=== PATIENT | male | born 1980 | race Caucasian/White ===

== ENCOUNTER 2016-10-24 09:43 | Emergency (ER) | payer MEDICAID ==
--- NOTE | 2016-10-24 09:57 | Emergency Department Record ---
History of Present Illness - General Chief complaint: Cold Stated complaint: SHORTNESS OF BREATH/CONGESTION Time Seen by Provider: 10/24/16 09:52 Source: Patient, Family Mode of Arrival: Ambulatory Limitations: No limitations - History of Present Illness Initial comments: 36 yo male presents with cough for 3 weeks. It has been on and off. The last 2 days it worsened. He is a smoker. He has associated sore throat and drainage. He did not get a flu shot. No history of asthma. He has had pneumonia in the past. No NVD. PCP is the [facility] MD complaint: Sore throat, Other (cough and congestion) Onset/Timin -: Week(s) Location: Throat Severity: Moderate Consistency: Constant Improves with: None Worsens with: None Context- Ear: Recent illness Associated Symptoms: Cough, Rhinorrhea, Sore throat - Related Data Previous Rx's Medication Instructions Recorded Azithromycin [Zithromax] 250 mg PO DAILY #6 tab 10/24/16 Allergies Allergy/AdvReac Type Severity Reaction Status Date / Time No Known Drug Allergies Allergy Verified 10/24/16 09:46 Travel Screening - Travel/Exposure Within Last 30 Days Have you traveled within the last 30 days?: No - Travel/Exposure Within Last Year Have you traveled outside the [place] in the last year?: No - Additonal Travel Details Have you been exposed to anyone with a communicable illness?: No - Travel Symptoms Symptom Screening: None Review of Systems Constitutional: Reports: Chills, Fever. Denies: Malaise Eyes: Denies: Eye discharge, Eye pain, Photophobia, Vision change ENT: Reports: Congestion. Denies: Epistaxis Respiratory: Reports: Cough. Denies: Hemoptysis, Stridor, Wheezes Cardiovascular: Denies: Chest pain, Palpitations, Syncope Endocrine: Denies: Fatigue Gastrointestinal: Denies: Abdominal pain, Diarrhea, Nausea, Vomiting Genitourinary: Denies: Frequency, Hematuria Musculoskeletal: Denies: Arthralgia, Back pain, Myalgia Skin: Denies: Bruising, Change in color, Rash Neurological: Denies: Confusion, Headache Psychiatric: Denies: Anxiety Hematological/Lymphatic: Denies: Blood Clots, Easy bleeding, Easy bruising, Swollen glands Past Medical History - SOCIAL HISTORY Smoking Status: Current every day smoker Alcohol Use: None Drug Use: None - RESPIRATORY Hx Respiratory Disorders: No - CARDIOVASCULAR Hx Cardio Disorders: No - NEURO Hx Neuro Disorders: No - GI Hx GI Disorders: Yes Hx Reflux: Yes - Hx Genitourinary Disorders: No - ENDOCRINE Hx Endocrine Disorders: No - MUSCULOSKELETAL Hx Musculoskeletal Disorders: No - PSYCH Hx Psych Problems: No - HEMATOLOGY/ONCOLOGY Hx Hematology/Oncology Disorders: No Family Medical History Any Significant Family History?: Yes Hx Diabetes: Grandparents Physical Exam - General General Appearance: Alert, Oriented x3, Cooperative, No acute distress Limitations: No limitations - Head Head exam: Normal inspection - Eye Eye exam: Normal appearance, PERRL. negative: Conjunctival injection, Periorbital swelling - ENT ENT exam: Normal exam, Mucous membranes moist, Normal external ear exam. negative: Normal orophraynx Ear exam: Normal external inspection. negative: External canal tenderness Nasal Exam: Discharge (clear) Mouth exam: Normal external inspection, Tongue normal Teeth exam: Normal inspection. negative: Dental caries Throat exam: Tonsillar erythema. negative: Tonsillomegaly, Tonsillar exudate, R peritonsillar mass, L peritonsillar mass - Neck Neck exam: Normal inspection, Full ROM. negative: Tenderness - Respiratory Respiratory exam: Normal lung sounds bilaterally. negative: Respiratory distress - Cardiovascular Cardiovascular Exam: Regular rate, Normal rhythm, Normal heart sounds - GI/Abdominal GI/Abdominal exam: Soft - Rectal Rectal exam: Deferred - exam: Deferred - Extremities Extremities exam: Normal inspection, Full ROM, Normal capillary refill. negative: Tenderness - Back Back exam: Reports: Normal inspection, Full ROM. Denies: Muscle spasm, Rash noted, Tenderness - Neurological Neurological exam: Alert, Normal gait, Oriented X3 - Psychiatric Psychiatric exam: Normal affect, Normal mood - Skin Skin exam: Dry, Intact, Normal color, Warm Course Vital Signs 10/24/16 09:48 Temperature 97.6 F Pulse Rate 96 H Respiratory 24 Rate Blood Pressure 138/79 Pulse Ox 96 - Reevaluation(s) Reevaluation #1: The vitals were reviewed No acute changes He is well appearing with occasional cough, runny nose and sore throat FLU and CXR ordered 10/24/16 09:57 Reevaluation #2: The influenza are negative The patient has had productive prolonged cough so RX will be provided for Zithromax CXR was negative for acute process 10/24/16 10:27 Disposition Disposition: Discharge Clinical Impression: Bronchitis Disposition: Home, Self-Care Condition: (1) Good Instructions: Acute Bronchitis (ED) Additional Instructions: Followup with your doctor this week Zithromax daily for 5 days. Prescriptions: Azithromycin [Zithromax] 250 mg PO DAILY #6 tab Forms: Patient Portal Access Time of Disposition: 10:29
[2016-10-24 10:14] LABS: INFLUENZA A NEGATIVE (NEGATIVE); INFLUENZA B NEGATIVE (NEGATIVE)
--- NOTE | 2016-10-28 14:46 | RADIOLOGY REPORT ---
EXAM: CHEST, TWO VIEWS HISTORY: PATIENT HAS ACUTE PRODUCTIVE COUGH TIMES THREE WEEKS. SHORTNESS OF BREATH. TECHNIQUE: Two views of the chest were provided along with the comparison study dated 02/26/10. FINDINGS: The cardiomediastinal silhouette is within normal limits for size and contour. The dany appear unremarkable. There is no radiographic evidence of a focal infiltrate or pleural effusion. Vascular crowding at the lung bases are identified. IMPRESSION: STABLE RADIOGRAPHIC APPEARANCE OF THE CHEST WITH RESPECT TO THE PRIOR EXAMINATION. JOB NUMBER: [id number] MTDD
== END 2016-10-24 10:34 | disposition home or self-care (01) ==
LOC: ER 09:43
DX: J20.9 Acute bronchitis, unspecified (principal); J02.9 Acute pharyngitis, unspecified; Z87.891 Personal history of nicotine dependence
CPT/HCPCS: 71020; 87400; 99283

== ENCOUNTER 2016-12-30 11:01 | Emergency (ER) | payer MEDICAID ==
--- NOTE | 2016-12-30 11:22 | Emergency Department Record ---
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 His neuropathy started one year ago. Last CT and MRI of brain in jun 2016. Onset/Timin -: Week(s) Exposure: Medication Symptoms: Itching, Rash, Difficulty breathing Severity: Mild Treatment Prior to Arrival: None Previous Allergy History: None - Related Data Home Medications Medication Instructions Recorded Confirmed Last Taken Gabapentin 300 mg PO TID #90 12/10/16 12/30/16 Unknown Allergies Allergy/AdvReac Type Severity Reaction Status Date / Time No Known Drug Allergies Allergy Unverified 12/10/16 13:52 Travel Screening - Travel/Exposure Within Last 30 Days Have you traveled within the last 30 days?: No Review of Systems Reviewed: No additional complaints except as noted below Constitutional: Reports: As per HPI. Denies: Chills, Fever, Malaise, Night sweats, Weakness, Weight change Eyes: Reports: As per HPI. Denies: Eye discharge, Eye pain, Photophobia, Vision change ENT: Reports: As per HPI. Denies: Congestion, Dental pain, Ear pain, Epistaxis , Hearing loss, Throat pain Respiratory: Reports: As per HPI. Denies: Cough, Dyspnea, Hemoptysis, Stridor, Wheezes Cardiovascular: Reports: As per HPI. Denies: Arrhythmia, Chest pain, Dyspnea on exertion, Edema, Murmurs, Orthopnea, Palpitations, Paroxysmal nocturnal dyspnea, Rheumatic Fever, Syncope Endocrine: Reports: As per HPI. Denies: Fatigue, Heat or cold intolerance, Polydipsia, Polyuria Gastrointestinal: Reports: As per HPI. Denies: Abdominal pain, Constipation, Diarrhea, Hematemesis, Hematochezia, Melena, Nausea, Vomiting Genitourinary: Reports: As per HPI. Denies: Dysuria, Frequency, Hematuria, Incontinence, Retention, Testicular pain, Testicular mass, Urgency Musculoskeletal: Reports: As per HPI. Denies: Arthralgia, Back pain, Gout, Joint swelling, Myalgia, Neck pain Skin: Reports: As per HPI. Denies: Bruising, Change in color, Change in hair/ nails, Lesions, Pruritus, Rash Neurological: Reports: As per HPI, Abnormal gait (walks with a cane), Numbness ( right side of body and has right sided neuropathy). Denies: Confusion, Headache , Paresthesias, Seizure, Tingling, Tremors, Vertigo, Weakness Psychiatric: Reports: As per HPI. Denies: Anxiety, Auditory hallucinations, Depression, Homicidal thoughts, Suicidal thoughts, Visual hallucinations Hematological/Lymphatic: Reports: As per HPI. Denies: Anemia, Blood Clots, Easy bleeding, Easy bruising, Swollen glands Past Medical History - SOCIAL HISTORY Smoking Status: Current every day smoker Alcohol Use: None Drug Use: None - RESPIRATORY Hx Respiratory Disorders: No - CARDIOVASCULAR Hx Cardio Disorders: No - NEURO Hx Neuro Disorders: Yes Comment:: neuropathy - GI Hx GI Disorders: Yes Hx Reflux: Yes - Hx Genitourinary Disorders: No - ENDOCRINE Hx Endocrine Disorders: No - MUSCULOSKELETAL Hx Musculoskeletal Disorders: Yes - PSYCH Hx Psych Problems: No - HEMATOLOGY/ONCOLOGY Hx Hematology/Oncology Disorders: No Family Medical History Any Significant Family History?: Yes Hx Diabetes: Grandparents Physical Exam - General General Appearance: Alert, Oriented x3, Cooperative, No acute distress - Head Head exam: Normal inspection - Eye Eye exam: Normal appearance, PERRL Pupils: Normal accommodation - ENT ENT exam: Normal exam, Mucous membranes moist, Normal external ear exam, Normal orophraynx, TM's normal bilaterally Ear exam: Normal external inspection. negative: External canal tenderness Nasal Exam: Normal inspection. negative: Discharge, Sinus tenderness Mouth exam: Normal external inspection, Tongue normal Teeth exam: Normal inspection. negative: Dental caries Throat exam: Normal inspection. negative: Tonsillar erythema, Tonsillar exudate - Neck Neck exam: Normal inspection, Full ROM. negative: Tenderness - Respiratory Respiratory exam: Normal lung sounds bilaterally. negative: Respiratory distress - Cardiovascular Cardiovascular Exam: Regular rate, Normal rhythm, Normal heart sounds - GI/Abdominal GI/Abdominal exam: Soft, Normal bowel sounds. negative: Tenderness - Rectal Rectal exam: Deferred - exam: Deferred - Extremities Extremities exam: Normal inspection, Full ROM, Normal capillary refill, Other ( weakness right leg and numbness right face and right arm and right leg, No faciaal droop). negative: Tenderness - Back Back exam: Reports: Normal inspection, Full ROM. Denies: Muscle spasm, Rash noted, Tenderness - Neurological Neurological exam: Alert, Normal gait, Oriented X3, Reflexes normal - Psychiatric Psychiatric exam: Normal affect, Normal mood - Skin Skin exam: Dry, Intact, Normal color, Warm Course Vital Signs 12/30/16 11:14 Temperature 97.9 F Pulse Rate 101 H Respiratory 22 Rate Blood Pressure 154/80 Pulse Ox 95 Medical Decision Making - Data Complexity MDM Data: Labs Ordered and/or Reviewed, X-Ray Ordered and/or Reviewed (CT head neg, same as previous) - Lab Data Result diagrams: 12/30/16 11:40 12/30/16 11:40 Disposition Clinical Impression: Neuropathy, Right facial numbness Disposition: Home, Self-Care Condition: (1) Good Instructions: Paresthesia (ED), Peripheral Neuropathy (ED) Additional Instructions: follow up with family follow up with the neurologist Forms: Patient Portal Access Time of Disposition: 12:25
[2016-12-30 11:48] LABS: BASO % 0.4 % (0-6); EOS % 3.7 % (0-6); GRAN % 56.5 % (47-80); HEMOGLOBIN 15.6 gm/dl (14.0-18.0); LYMPH % 28.6 % (16-45); MEAN CELL VOLUME 89.5 fl (81-97); MEAN CORPUSCULAR HEMOGLOBIN 30.4 pg (27-33); MEAN CORPUSCULAR HGB CONC 33.9 g/dl (32-36); MEAN PLATELET VOLUME 9.5 fl (7.4-10.4); MONO % 10.8 % (0-9); PLATELET COUNT 313 K/uL (130-400); RED BLOOD COUNT 5.14 M/uL (4.40-5.70); RED CELL DISTRIBUTION WIDTH 13.6 % (11.5-14.5); WHITE BLOOD COUNT W/O DIFF 8.5 K/uL (4.2-12.2)
[2016-12-30 12:01] LABS: ANION GAP 8.8 (7-16); BLOOD UREA NITROGEN 20 mg/dL (9-20); CARBON DIOXIDE 30.2 mmol/L (22-30); CREATININE 1.1 mg/dL (0.66-1.25); EST GLOMERULAR FILTRATION RATE > 60 ml/min; GLUCOSE,RANDOM 108 mg/dL (70-110)
[2016-12-30] MEDS: POTASSIUM CHLORIDE 20 MEQ TABLET PO ONE (12:32)
== END 2016-12-30 12:45 | disposition home or self-care (01) ==
LOC: ER 11:01
DX: G62.9 Polyneuropathy, unspecified (principal); R20.0 Anesthesia of skin; R06.00 Dyspnea, unspecified; R21 Rash and other nonspecific skin eruption; R26.2 Difficulty in walking, not elsewhere classified
CPT/HCPCS: 70450; 80048; 85025; 85730; 99283; 99284

== ENCOUNTER 2017-01-21 16:37 | Emergency (ER) | payer MEDICAID ==
--- NOTE | 2017-01-21 17:21 | Emergency Department Record ---
History of Present Illness - General Chief Complaint: Back Pain/Injury Stated Complaint: PAIN IN BACK AND ALL OVER Time Seen by Provider: 01/21/17 17:21 Source: Patient Mode of Arrival: Ambulatory Limitations: No limitations - History of Present Illness Initial Comments: The patient is here for multiple complaints. He states he is having worsening of his chronic pain that he has been experiencing for over a year. He had his Gabapentin stopped because of side effects and he has been unable to get into his Neurologist. He also states when he sees his PCP she just says to see his Neurologist. Now additionally he has been having sharp stabbing L sided CP for 3 days. It is worse with movement and twisting. He has had chronic SOB also but no sweating or nausea. MD Complaint: Other Onset/Timin -: Year(s) Similar Symptoms Previously: Yes Severity scale (1-10): 10 Quality: Sharp Consistency: Intermittent Improves With: None Worsens With: None Context: Other Treatments Prior to Arrival: NSAIDS - Related Data Home Medications Medication Instructions Recorded Confirmed Last Taken Gabapentin 300 mg PO TID #90 12/10/16 01/21/17 01/21/17 Cholecalciferol (Vitamin D3) 5,000 unit PO DAILY 01/21/17 01/21/17 01/21/17 [Vitamin D3] Previous Rx's Medication Instructions Recorded Naproxen [Naprosyn] 500 mg PO BID #14 tablet. 01/21/17 Potassium Chloride 20 meq PO DAILY #7 tab.[email or web address].prt 01/21/17 Allergies Allergy/AdvReac Type Severity Reaction Status Date / Time No Known Drug Allergies Allergy Verified 01/21/17 17:06 Travel Screening - Travel/Exposure Within Last 30 Days Have you traveled within the last 30 days?: No - Travel/Exposure Within Last Year Have you traveled outside the [place] in the last year?: No - Additonal Travel Details Have you been exposed to anyone with a communicable illness?: No - Travel Symptoms Symptom Screening: None Review of Systems Constitutional: Denies: Chills, Fever Eyes: Denies: Eye discharge ENT: Denies: Congestion Respiratory: Denies: Cough, Dyspnea Past Medical History - SOCIAL HISTORY Smoking Status: Current every day smoker Alcohol Use: None Drug Use: None - RESPIRATORY Hx Respiratory Disorders: No - CARDIOVASCULAR Hx Cardio Disorders: No - NEURO Hx Neuro Disorders: Yes Comment:: neuropathy - GI Hx GI Disorders: Yes Hx Reflux: Yes - Hx Genitourinary Disorders: No - ENDOCRINE Hx Endocrine Disorders: No - MUSCULOSKELETAL Hx Musculoskeletal Disorders: Yes - PSYCH Hx Psych Problems: No - HEMATOLOGY/ONCOLOGY Hx Hematology/Oncology Disorders: No Family Medical History Any Significant Family History?: Yes Hx Diabetes: Grandparents Physical Exam - General General Appearance: Alert, Oriented x3, Cooperative, No acute distress - Head Head exam: Atraumatic, Normocephalic, Normal inspection - Eye Eye exam: Normal appearance, PERRL - Neck Neck exam: Normal inspection, Full ROM. negative: Tenderness - Respiratory Respiratory exam: Normal lung sounds bilaterally, Chest wall tenderness (The L sided CP is 100% reproducible to palpation of the L anterior chest wall.). negative: Respiratory distress - Cardiovascular Cardiovascular Exam: Regular rate, Normal rhythm, Normal heart sounds - GI/Abdominal GI/Abdominal exam: Soft, Normal bowel sounds. negative: Tenderness - Extremities Extremities exam: Normal inspection, Full ROM, Normal capillary refill, Pedal edema (1+ chronically bilaterally.). negative: Tenderness Course Vital Signs 01/21/17 17:09 Temperature 98.9 F Pulse Rate 103 H Respiratory 20 Rate Blood Pressure 146/84 Pulse Ox 97 - Reevaluation(s) Reevaluation #1: The patient is doing better at this time. His pain is improved and is still very reproducible. I did explain to him that I do believe his pain is muscular in origin and I will prescribe Naprosyn for the pain. He also will receive a short course of Potassium also. 01/21/17 18:45 Reevaluation #2: I did discuss the case with the patient's PCP Jessica LAO) and she will see him next week. 01/21/17 19:09 Medical Decision Making - Data Complexity MDM Data: Labs Ordered and/or Reviewed, X-Ray Ordered and/or Reviewed, EKG Ordered and/or Reviewed - Lab Data Result diagrams: 01/21/17 17:45 01/21/17 17:45 - EKG Data -: EKG Interpreted by Me EKG: No Acute Changes, Unchanged From Previous - Radiology Data Radiology results: Report reviewed (CXR: Neg.) Disposition Disposition: Discharge Clinical Impression: Chest wall pain Disposition: Home, Self-Care Condition: (1) Good Instructions: Chest Wall Pain (ED) Additional Instructions: The patient is to take the Naprosyn for pain and use the Potassium for 7 days. He is to see his PCP early next week to go over his lab work and low TSH. He is to return to the ER for any increased symptoms, increased Chest pain, trouble breathing or any fever. Prescriptions: Naproxen [Naprosyn] 500 mg PO BID #14 tablet. Potassium Chloride 20 meq PO DAILY #7 tab.er.prt Forms: Patient Portal Access Time of Disposition: 18:49
[2017-01-21 18:01] LABS: BASO % 0.3 % (0-6); EOS % 3.2 % (0-6); GRAN % 54.7 % (47-80); HEMATOCRIT 49.5 % (42.0-52.0); HEMOGLOBIN 16.7 gm/dl (14.0-18.0); LYMPH % 30.2 % (16-45); MEAN CELL VOLUME 89.7 fl (81-97); MEAN CORPUSCULAR HEMOGLOBIN 30.3 pg (27-33); MEAN CORPUSCULAR HGB CONC 33.7 g/dl (32-36); MEAN PLATELET VOLUME 9.8 fl (7.4-10.4); MONO % 11.6 % (0-9); PLATELET COUNT 339 K/uL (130-400); RED BLOOD COUNT 5.52 M/uL (4.40-5.70); RED CELL DISTRIBUTION WIDTH 13.3 % (11.5-14.5)
[2017-01-21 18:11] LABS: ANION GAP 11.5 (7-16); BLOOD UREA NITROGEN 24 mg/dL (9-20); CARBON DIOXIDE 28.5 mmol/L (22-30); CREATINE PHOSPHOKINASE 131 U/L (55-170); EST GLOMERULAR FILTRATION RATE > 60 ml/min; GLUCOSE,RANDOM 102 mg/dL (70-110)
[2017-01-21] MEDS ORDERED: POTASSIUM CHLORIDE 20 MEQ TABLET PO ONE (18:15)
[2017-01-21] MEDS ORDERED: KETOROLAC 30 MG/ML VIAL IVP ONE (18:17)
[2017-01-21 18:23] LABS: CKMB 0.3 ug/L (0-6)
[2017-01-21 18:24] LABS: TROPONIN I < 0.012 ng/mL (0.00-0.034)
== END 2017-01-21 18:57 | disposition home or self-care (01) ==
LOC: ER 16:37
DX: R07.89 Other chest pain (principal); R06.02 Shortness of breath; G62.9 Polyneuropathy, unspecified
CPT/HCPCS: 99284 ×2; 96374; 82550; 85025; 82553; 84484; 80048; 84443; 71020; 93005; 93010; J1885

== ENCOUNTER 2017-05-29 20:45 | Emergency (ER) | payer MEDICAID ==
[2017-05-29] MEDS ORDERED: DIPHENHYDRAMINE HCL IV 50 MG/ML VIAL IVP ONE (21:26)
[2017-05-29] MEDS ORDERED: METOCLOPRAMIDE HCL 10 MG/2 ML VIAL IVP ONE (21:26)
[2017-05-29] MEDS ORDERED: MORPHINE SULFATE 5 MG/ML PFS IVP ONE (21:30)
[2017-05-29] MEDS ORDERED: 0.9 % SODIUM CHLORIDE 1000ML 1,000 ML IV SCH (21:30)
--- NOTE | 2017-05-29 21:31 | Emergency Department Record ---
History of Present Illness - General Stated Complaint: DALTON AND VOMITING Time Seen by Provider: 05/29/17 21:26 Source: Patient Mode of Arrival: Wheelchair Limitations: No limitations - History of Present Illness Initial Comments: 36 yo male presents to ED for evaluation of a persistent headache, nausea, and vomiting following an LP that was performed by his neurologist at [facility] 3 days ago. Patient reports that his procedure was performed in the Clinical center, was performed to further evaluate for the patient's neuropathy symptoms. Patient denies fevers, chills, or recent illness. Patient called the on-call provider yesterday afternoon with no return call. MD Complaint: Headache Onset/Timin -: Days(s) Onset Description: Gradual Location: Diffuse Severity: Severe Quality: Throbbing Consistency: Constant Improves With: Nothing Worsens With: Sitting/standing Context: Recent spinal/epidural procedure Associated Symptoms: Nausea, Vomiting - Related Data Allergies Allergy/AdvReac Type Severity Reaction Status Date / Time No Known Drug Allergies Allergy Unverified 04/06/17 11:20 Review of Systems Constitutional: Denies: Chills, Fever, Malaise, Night sweats Eyes: Denies: Eye discharge, Eye pain ENT: Denies: Ear pain, Epistaxis Respiratory: Denies: Cough, Dyspnea Cardiovascular: Denies: Chest pain, Dyspnea on exertion Endocrine: Denies: Fatigue, Heat or cold intolerance Gastrointestinal: Reports: Nausea, Vomiting. Denies: Abdominal pain Genitourinary: Denies: Incontinence, Retention Musculoskeletal: Denies: Arthralgia, Back pain, Gout, Joint swelling Skin: Denies: Bruising, Change in color Neurological: Reports: Headache. Denies: Abnormal gait, Confusion, Seizure Psychiatric: Denies: Anxiety Hematological/Lymphatic: Denies: Anemia, Blood Clots Past Medical History - SOCIAL HISTORY Smoking Status: Current every day smoker Drug Use: None - RESPIRATORY Hx Respiratory Disorders: No - CARDIOVASCULAR Hx Cardio Disorders: No - NEURO Hx Neuro Disorders: Yes Comment:: neuropathy - GI Hx GI Disorders: Yes Hx Reflux: Yes - Hx Genitourinary Disorders: No - ENDOCRINE Hx Endocrine Disorders: No - MUSCULOSKELETAL Hx Musculoskeletal Disorders: Yes - PSYCH Hx Psych Problems: No - HEMATOLOGY/ONCOLOGY Hx Hematology/Oncology Disorders: No Family Medical History Hx Diabetes: Grandparents Physical Exam - General General Appearance: Alert, Oriented x3, Cooperative, Moderate distress Limitations: No limitations - Head Head exam: Atraumatic, Normocephalic, Normal inspection Head exam detail: negative: Abrasion, Contusion, Prince's sign, General tenderness, Hematoma, Laceration - Eye Eye exam: Normal appearance. negative: Conjunctival injection, Periorbital swelling, Periorbital tenderness, Scleral icterus - ENT Ear exam: negative: Auricular hematoma, Auricular trauma Nasal Exam: negative: Active bleeding, Discharge, Dried blood, Foreign body Mouth exam: negative: Drooling, Laceration, Muffled voice, Tongue elevation - Neck Neck exam: Normal inspection. negative: Meningismus, Tenderness - Respiratory Respiratory exam: Normal lung sounds bilaterally. negative: Rales, Respiratory distress, Rhonchi, Stridor - Cardiovascular Cardiovascular Exam: Regular rate, Normal rhythm, Normal heart sounds - GI/Abdominal GI/Abdominal exam: Soft. negative: Rebound, Rigid, Tenderness - Rectal Rectal exam: Deferred - exam: Deferred - Extremities Extremities exam: Normal inspection. negative: Calf tenderness, Pedal edema, Tenderness - Back Back exam: Denies: CVA tenderness (R), CVA tenderness (L) - Neurological Neurological exam: Alert, Oriented X3. negative: Motor sensory deficit - Psychiatric Psychiatric exam: Normal affect, Normal mood - Skin Skin exam: Normal color. negative: Abrasion Type of lesion: negative: abrasion Course - Reevaluation(s) Reevaluation #1: 05/29/17 23:06 Labs reviewed, WBC 12.8, labs are otherwise grossly unremarkable for an acute process. CT Head: No acute intracranial process, 5 mm colloid cyst foramen of sparks. Patient reassessed and reports improvement in his headache symptoms. Will gradually attempt to sit the patient up and continue to monitor. Reevaluation #2: 05/30/17 00:03 Patient reassessed, reports that his headache symptoms continue to improve. Will continue to observe as medications continue to infuse. Reevaluation #3: 05/30/17 01:12 Patient reports that he is feeling well at this time, no indication for transfer for blood patch at this time. Patient appears stable for discharge at this time with instructions to return for any return of his headache symptoms. Medical Decision Making - Lab Data Result diagrams: 05/29/17 21:55 05/29/17 21:55 Disposition Disposition: Discharge Clinical Impression: Post lumbar puncture headache Disposition: Home, Self-Care Condition: (2) Stable Instructions: Acute Headache (ED) Additional Instructions: Return to ED if your symptoms worsen or if you have any concerns. Follow-up with your family doctor in 1-3 days as directed. Time of Disposition: 01:16 Quality - Quality Measures Quality Measures: N/A - Blood Pressure Screening Does Patient Have Any of the Following: No Blood Pressure Classification: Pre-Hypertensive BP Reading Systolic Measurement: 147 Diastolic Measurement: 88 Screening for High Blood Pressure: < Pre-Hypertensive BP, F/U Documented > [ [id number]] Pre-Hypertensive Follow-up Interventions: Referral to alternative/primary care provider.
[2017-05-29 22:08] LABS: BASO % 0.3 % (0-6); GRAN % 58.1 % (47-80); HEMATOCRIT 44.2 % (42.0-52.0); HEMOGLOBIN 14.8 gm/dl (14.0-18.0); LYMPH % 29.8 % (16-45); MEAN CELL VOLUME 91.1 fl (81-97); MEAN CORPUSCULAR HEMOGLOBIN 30.5 pg (27-33); MEAN CORPUSCULAR HGB CONC 33.5 g/dl (32-36); MEAN PLATELET VOLUME 9.5 fl (7.4-10.4); MONO % 8.8 % (0-9); PLATELET COUNT 322 K/uL (130-400); RED BLOOD COUNT 4.85 M/uL (4.40-5.70); RED CELL DISTRIBUTION WIDTH 14.2 % (11.5-14.5); WHITE BLOOD COUNT W/O DIFF 12.8 K/uL (4.2-12.2)
[2017-05-29 22:19] LABS: INR 0.91; PROTHROMBIN TIME (PATIENT) 9.8 SECONDS (9.5-12.1)
[2017-05-29 22:26] LABS: ALB/GLOB RATIO 1.4 (1.1-1.8); ALBUMIN 3.8 g/dL (4.0-5.0); ALKALINE PHOSPHATASE 61 U/L (40-129); ALT/SGPT 50 U/L (<41); AST/SGOT 20 U/L (10.0-50.0); BLOOD UREA NITROGEN 17 mg/dL (6-20); CREATININE 0.9 mg/dL (0.7-1.2); EST GLOMERULAR FILTRATION RATE > 60 mL/min; GLUCOSE,RANDOM 101 mg/dL (74-109); TOTAL PROTEIN 6.6 g/dL (6.6-8.7)
--- NOTE | 2017-05-31 09:38 | CT SCAN REPORT ---
EXAM: CT OF THE BRAIN WITHOUT CONTRAST HISTORY: HEADACHE. TECHNIQUE: Sequential axial images were obtained from the foramen magnum to the vertex without contrast administration. FINDINGS: The brain volume is normal. There is no large territorial infarct, hemorrhage, mass effect, or midline shift. No extraaxial fluid collection. There is a hyperdense colloid cyst in the foramen of Paige. This measures 5 mm. The orbits, paranasal sinuses, and mastoid air cells are normal. IMPRESSION: 1. NO ACUTE INTRACRANIAL ABNORMALITY IS APPRECIATED. 2. 5 MM COLLOID CYST IN THE FORAMEN OF PAIGE. JOB NUMBER: [id number] MTDD
== END 2017-05-30 01:31 | disposition home or self-care (01) ==
LOC: ER 20:45
DX: G97.1 Other reaction to spinal and lumbar puncture (principal); R11.2 Nausea with vomiting, unspecified; Y84.4 Aspiration of fluid as the cause of abnormal reaction of the patient, or of later complication, without mention of misadventure at the time of the procedure
CPT/HCPCS: 99284 ×2; 96374; 96375; 85025; 85610; 80053; 70450; J2270; J1200; J2765

== ENCOUNTER 2018-04-23 18:17 | Emergency (ER) | payer MEDICAID ==
[2018-04-23] MEDS ORDERED: Diph,Pert(Acell),Tet Vac 0.5 ML SYR IM ONE (18:40)
[2018-04-23] MEDS ORDERED: CLINDAMYCIN 150 MG CAP PO ONE (18:43)
--- NOTE | 2018-04-23 18:43 | Emergency Department Record ---
History of Present Illness - General Chief complaint: Extremity Problem Stated complaint: L LEG/FOOT SWOLLEN/RASH R Time Seen by Provider: 04/23/18 18:30 Source: Patient Mode of Arrival: Ambulatory - History of Present Illness Initial comments: Patient and report that his left toes had sores on the top of them which they first oticed yesterday. Toay there is redness around the sore areas. He has neuropathy so they always burn and tingle. He thinks it started with a sore he found on his left lateral thigh whichhis swueezed and pus came out about 5 days ago. He denies having MRSA to his knowledge. He is not UTD on his tetanus. MD Complaint: Extremity pain Onset/Timin -: Days(s) Location: Left, Foot History of Same: Yes Radiation: None Severity scale (1-10): 6 Consistency: Intermittent Improves with: Nothing Worsens with: Nothing Associated Symptoms: Denies other symptoms - Related Data Previous Rx's Medication Instructions Recorded Clindamycin HCl [Cleocin HCl] 300 mg PO Q6HR #39 capsule 04/23/18 Allergies Allergy/AdvReac Type Severity Reaction Status Date / Time gabapentin Allergy Intermediate RASH, Verified 04/23/18 18:21 FACIAL NUMBNESS Travel Screening - Travel/Exposure Within Last 30 Days Have you traveled within the last 30 days?: No - Travel/Exposure Within Last Year Have you traveled outside the [place] in the last year?: No - Additonal Travel Details Have you been exposed to anyone with a communicable illness?: No - Travel Symptoms Symptom Screening: None Review of Systems Reviewed: No additional complaints except as noted below Constitutional: Reports: As per HPI. Denies: Chills, Fever, Malaise, Night sweats, Weakness, Weight change Eyes: Reports: As per HPI. Denies: Eye discharge, Eye pain, Photophobia, Vision change ENT: Reports: As per HPI. Denies: Congestion, Dental pain, Ear pain, Epistaxis , Hearing loss, Throat pain Respiratory: Reports: As per HPI. Denies: Cough, Dyspnea, Hemoptysis, Stridor, Wheezes Cardiovascular: Reports: As per HPI. Denies: Arrhythmia, Chest pain, Dyspnea on exertion, Edema, Murmurs, Orthopnea, Palpitations, Paroxysmal nocturnal dyspnea, Rheumatic Fever, Syncope Endocrine: Reports: As per HPI. Denies: Fatigue, Heat or cold intolerance, Polydipsia, Polyuria Gastrointestinal: Reports: As per HPI. Denies: Abdominal pain, Constipation, Diarrhea, Hematemesis, Hematochezia, Melena, Nausea, Vomiting Genitourinary: Reports: As per HPI. Denies: Dysuria, Frequency, Hematuria, Incontinence, Retention, Testicular pain, Testicular mass, Urgency Musculoskeletal: Reports: As per HPI. Denies: Arthralgia, Back pain, Gout, Joint swelling, Myalgia, Neck pain Skin: Reports: As per HPI. Denies: Bruising, Change in color, Change in hair/ nails, Lesions, Pruritus, Rash Neurological: Reports: As per HPI. Denies: Abnormal gait, Confusion, Headache, Numbness, Paresthesias, Seizure, Tingling, Tremors, Vertigo, Weakness Psychiatric: Reports: As per HPI. Denies: Anxiety, Auditory hallucinations, Depression, Homicidal thoughts, Suicidal thoughts, Visual hallucinations Hematological/Lymphatic: Reports: As per HPI. Denies: Anemia, Blood Clots, Easy bleeding, Easy bruising, Swollen glands Past Medical History - SOCIAL HISTORY Smoking Status: Former smoker Alcohol Use: None Drug Use: None - RESPIRATORY Hx Respiratory Disorders: No - CARDIOVASCULAR Hx Cardio Disorders: No - NEURO Hx Neuro Disorders: Yes Comment:: neuropathy - GI Hx GI Disorders: Yes Hx Reflux: Yes - Hx Genitourinary Disorders: No - ENDOCRINE Hx Endocrine Disorders: No - MUSCULOSKELETAL Hx Musculoskeletal Disorders: Yes - PSYCH Hx Psych Problems: No - HEMATOLOGY/ONCOLOGY Hx Hematology/Oncology Disorders: No Family Medical History Any Significant Family History?: Yes Hx Diabetes: Grandparents Physical Exam - General General Appearance: Alert, Oriented x3, Cooperative, No acute distress - Head Head exam: Normal inspection - Eye Eye exam: Normal appearance, PERRL Pupils: Normal accommodation - ENT ENT exam: Normal exam, Mucous membranes moist, Normal external ear exam, Normal orophraynx, TM's normal bilaterally Ear exam: Normal external inspection. negative: External canal tenderness Nasal Exam: Normal inspection. negative: Discharge, Sinus tenderness Mouth exam: Normal external inspection, Tongue normal Teeth exam: Normal inspection. negative: Dental caries Throat exam: Normal inspection. negative: Tonsillar erythema, Tonsillar exudate - Neck Neck exam: Normal inspection, Full ROM. negative: Tenderness - Respiratory Respiratory exam: Normal lung sounds bilaterally. negative: Respiratory distress - Cardiovascular Cardiovascular Exam: Regular rate, Normal rhythm, Normal heart sounds - GI/Abdominal GI/Abdominal exam: Soft, Normal bowel sounds. negative: Tenderness - Rectal Rectal exam: Deferred - exam: Deferred - Extremities Extremities exam: Normal inspection, Full ROM, Normal capillary refill, Other ( dorsal aspect of toes of left foot with sores with surrounding erythema; noncircumferential, nothing involved between toes.). negative: Calf tenderness , Pedal edema, Tenderness - Back Back exam: Reports: Normal inspection, Full ROM. Denies: Muscle spasm, Rash noted, Tenderness - Neurological Neurological exam: Alert, Normal gait, Oriented X3, Reflexes normal - Psychiatric Psychiatric exam: Normal affect, Normal mood - Skin Skin exam: Dry, Intact, Normal color, Warm Course Vital Signs 04/23/18 18:23 Temperature 98.1 F Pulse Rate 77 Respiratory 20 Rate Blood Pressure 151/93 Pulse Ox 98 Medical Decision Making - Data Complexity MDM Data: X-Ray Ordered and/or Reviewed (foot xray (of toes): No acute abnormality per ED physician.) Disposition Disposition: Discharge Clinical Impression: Cellulitis of second toe, left Disposition: Home, Self-Care Condition: (1) Good Instructions: Cellulitis (ED) Additional Instructions: Keep foot covered for protection. Post op shoe. Decreased ambulation. Elevate foot above heart continuously. Follow up with PCP Leyla Bloom Wednesday for recheck of cellulitis without fail. Clindamycin 300 mg every 6 hours for 10 days. Prescriptions: Clindamycin HCl [Cleocin HCl] 300 mg PO Q6HR #39 capsule Forms: Patient Portal Access Quality - Quality Measures Quality Measures: N/A - Blood Pressure Screening Does Patient Have Any of the Following: No Blood Pressure Classification: Hypertensive Reading Systolic Measurement: 151 Diastolic Measurement: 93 Screening for High Blood Pressure: Patient Exclusion, Hx of HTN [G9744]
--- NOTE | 2018-04-23 19:00 | Emergency Department Record ---
History of Present Illness - General Chief complaint: Extremity Problem Stated complaint: L LEG/FOOT SWOLLEN/RASH R Time Seen by Provider: 04/23/18 18:30 Mode of Arrival: Ambulatory - History of Present Illness Onset/Timin -: Days(s) Location: Left, Foot History of Same: Yes Radiation: None Severity scale (1-10): 6 Consistency: Intermittent Improves with: Nothing Worsens with: Nothing Associated Symptoms: Denies other symptoms - Related Data Allergies Allergy/AdvReac Type Severity Reaction Status Date / Time gabapentin Allergy Intermediate RASH, Verified 04/23/18 18:21 FACIAL NUMBNESS Travel Screening - Travel/Exposure Within Last 30 Days Have you traveled within the last 30 days?: No - Travel/Exposure Within Last Year Have you traveled outside the [place] in the last year?: No - Additonal Travel Details Have you been exposed to anyone with a communicable illness?: No - Travel Symptoms Symptom Screening: None Past Medical History - SOCIAL HISTORY Smoking Status: Former smoker Alcohol Use: None Drug Use: None - RESPIRATORY Hx Respiratory Disorders: No - CARDIOVASCULAR Hx Cardio Disorders: No - NEURO Hx Neuro Disorders: Yes Comment:: neuropathy - GI Hx GI Disorders: Yes Hx Reflux: Yes - Hx Genitourinary Disorders: No - ENDOCRINE Hx Endocrine Disorders: No - MUSCULOSKELETAL Hx Musculoskeletal Disorders: Yes - PSYCH Hx Psych Problems: No - HEMATOLOGY/ONCOLOGY Hx Hematology/Oncology Disorders: No Family Medical History Any Significant Family History?: Yes Hx Diabetes: Grandparents Course Vital Signs 04/23/18 18:23 Temperature 98.1 F Pulse Rate 77 Respiratory 20 Rate Blood Pressure 151/93 Pulse Ox 98 Disposition Quality - Blood Pressure Screening Does Patient Have Any of the Following: No Blood Pressure Classification: Hypertensive Reading Systolic Measurement: 151 Diastolic Measurement: 93
--- NOTE | 2018-04-25 08:48 | RADIOLOGY REPORT ---
EXAM: LEFT FOOT HISTORY: PAIN. TECHNIQUE: Three views of the left foot were obtained. FINDINGS: There are degenerative changes at the first MTP joint. No fractures are identified. There is no evidence of foreign body or periosteal reaction. IMPRESSION: NO EVIDENCE OF FRACTURE. JOB NUMBER: [id number] [facility]
== END 2018-04-23 19:47 | disposition home or self-care (01) ==
LOC: ER 18:17
DX: L03.032 Cellulitis of left toe (principal); Z87.891 Personal history of nicotine dependence
CPT/HCPCS: 90715; 96372; 99283

== ENCOUNTER 2018-04-24 22:23 | Emergency (ER) | payer MEDICAID ==
[2018-04-24 22:42] LABS: URINE APPEARANCE CLEAR; URINE BILIRUBIN NEGATIVE (NEGATIVE); URINE BLOOD NEGATIVE (NEGATIVE); URINE COLOR YELLOW; URINE GLUCOSE (UA) NEGATIVE (NEGATIVE); URINE KETONE NEGATIVE (NEGATIVE); URINE LEUKOCYTE ESTERASE NEGATIVE (NEGATIVE); URINE NITRITE NEGATIVE (NEGATIVE); URINE PROTEIN NEGATIVE (NEGATIVE); URINE UROBILINOGEN 0.2 E.U./dL (0.20 - 1.00)
--- NOTE | 2018-04-24 22:50 | Emergency Department Record ---
History of Present Illness - General Chief complaint: Male Urogenital Problem Stated complaint: PAIN DURING URINATION, Time Seen by Provider: 04/24/18 22:24 Source: Patient Mode of Arrival: Ambulatory Limitations: No limitations - History of Present Illness Initial comments: 37 yo male presents to ED for evaluation of dysuria and frequent urination symptoms that began last this afternoon. Patient denies fevers, chills. flank pain, or hematuria [id number]. Patient reports that he was in the ED yesterday, diagnosed with cellulitis of the left foot, and started on an antibiotic. Patient denies previous history of DM, and denies scrotal/testicular pain symptoms. MD Complaint: Testicle swelling Onset/Timin -: Hour(s) Location: Penis Radiation: None Severity scale (1-10): 7 Quality: Burning Consistency: Intermittent Improves with: None Worsens with: None Reports: Denies other symptoms - Related Data Sexually active: Yes Previous Rx's Medication Instructions Recorded Clindamycin HCl [Cleocin HCl] 300 mg PO Q6HR #39 capsule 04/23/18 Phenazopyridine HCl [Pyridium] 200 mg PO TID #5 tab 04/24/18 Allergies Allergy/AdvReac Type Severity Reaction Status Date / Time gabapentin Allergy Intermediate RASH, Verified 04/23/18 18:21 FACIAL NUMBNESS Travel Screening - Travel/Exposure Within Last 30 Days Have you traveled within the last 30 days?: No - Travel/Exposure Within Last Year Have you traveled outside the [place] in the last year?: No - Additonal Travel Details Have you been exposed to anyone with a communicable illness?: No - Travel Symptoms Symptom Screening: None Review of Systems Constitutional: Denies: Chills, Fever, Malaise, Night sweats Eyes: Denies: Eye discharge, Eye pain ENT: Denies: Congestion, Ear pain, Epistaxis Respiratory: Denies: Cough, Dyspnea Cardiovascular: Denies: Chest pain, Dyspnea on exertion Endocrine: Denies: Fatigue, Heat or cold intolerance Gastrointestinal: Denies: Abdominal pain, Nausea, Vomiting Genitourinary: Reports: Dysuria, Frequency. Denies: Incontinence, Retention Musculoskeletal: Denies: Arthralgia, Back pain, Gout, Joint swelling Skin: Denies: Bruising, Change in color Neurological: Denies: Abnormal gait, Confusion, Headache, Seizure Psychiatric: Denies: Anxiety Hematological/Lymphatic: Denies: Anemia, Blood Clots Past Medical History - SOCIAL HISTORY Smoking Status: Former smoker Alcohol Use: None Drug Use: None - RESPIRATORY Hx Respiratory Disorders: No - CARDIOVASCULAR Hx Cardio Disorders: No - NEURO Hx Neuro Disorders: Yes Comment:: neuropathy - GI Hx GI Disorders: Yes Hx Reflux: Yes - Hx Genitourinary Disorders: No - ENDOCRINE Hx Endocrine Disorders: No - MUSCULOSKELETAL Hx Musculoskeletal Disorders: Yes - PSYCH Hx Psych Problems: No - HEMATOLOGY/ONCOLOGY Hx Hematology/Oncology Disorders: No Family Medical History Any Significant Family History?: No Hx Diabetes: Grandparents Physical Exam - General General Appearance: Alert, Oriented x3, Cooperative, No acute distress Limitations: No limitations - Head Head exam: Atraumatic, Normocephalic, Normal inspection Head exam detail: negative: Abrasion, Contusion, Prince's sign, General tenderness, Hematoma, Laceration - Eye Eye exam: Normal appearance. negative: Conjunctival injection, Periorbital swelling, Periorbital tenderness, Scleral icterus - ENT Ear exam: negative: Auricular hematoma, Auricular trauma Nasal Exam: negative: Active bleeding, Discharge, Dried blood, Foreign body Mouth exam: negative: Drooling, Laceration, Muffled voice, Tongue elevation - Neck Neck exam: Normal inspection. negative: Meningismus, Tenderness - Respiratory Respiratory exam: Normal lung sounds bilaterally. negative: Rales, Respiratory distress, Rhonchi, Stridor - Cardiovascular Cardiovascular Exam: Regular rate, Normal rhythm, Normal heart sounds - GI/Abdominal GI/Abdominal exam: Soft, Tenderness (Mild TTP over the suprapubic region on examination, no rebound or guarding present on examination.). negative: Rebound , Rigid - Rectal Rectal exam: Deferred - exam: Deferred - Extremities Extremities exam: Other (Abrasions are present over the dorsum of the left toes) . negative: Calf tenderness, Pedal edema, Tenderness - Back Back exam: Denies: CVA tenderness (R), CVA tenderness (L) - Neurological Neurological exam: Alert, Normal gait, Oriented X3 - Psychiatric Psychiatric exam: Normal affect, Normal mood - Skin Skin exam: Normal color. negative: Abrasion Type of lesion: negative: abrasion Course Vital Signs 04/24/18 22:29 Temperature 98.5 F Pulse Rate 74 Respiratory 28 H Rate Blood Pressure 139/87 Pulse Ox 98 - Reevaluation(s) Reevaluation #1: 04/24/18 22:46 UA reviewed and appears negative for infection. Reevaluation #2: 04/24/18 23:42 Labs reviewed and are grossly unremarkable for an acute process. CT results are pending. Reevaluation #3: 04/24/18 23:51 CT Abdomen and Pelvis: Mild hepatic steatosis Contracted GB with stones vs. calcifications within the GB fossa (Patient reports previous cholecystectomy) Patient was updated on all results, appears stable for discharge at this time. Will discharge home on Pyridium as directed with instructions for follow-up in 3 -5 days as directed. Medical Decision Making - Lab Data Result diagrams: 04/24/18 23:00 04/24/18 23:00 Lab Results 04/24/18 Range/Units Unknown Urine Color Yellow Urine Appearance Clear Urine pH 6.0 (5.0-8.0) Ur Specific [place] 1.010 (1.002-1.030) Urine Protein Negative (NEGATIVE) Urine Glucose (UA) Negative (NEGATIVE) Urine Ketones Negative (NEGATIVE) Urine Blood Negative (NEGATIVE) Urine Nitrite Negative (NEGATIVE) Urine Bilirubin Negative (NEGATIVE) Urine Urobilinogen 0.2 (0.20 - 1.00) E.U./dL Ur Leukocyte Esterase Negative (NEGATIVE) Disposition Disposition: Discharge Clinical Impression: Dysuria Disposition: Home, Self-Care Condition: (2) Stable Instructions: Dysuria (ED) Additional Instructions: Return to ED if your symptoms worsen or if you have any concerns. Pyridium as directed. Follow-up with your family doctor in 3-5 days as directed. Prescriptions: Phenazopyridine HCl [Pyridium] 200 mg PO TID #5 tab Forms: Patient Portal Access Time of Disposition: 23:59 Quality - Quality Measures Quality Measures: N/A - Blood Pressure Screening Does Patient Have Any of the Following: No Blood Pressure Classification: Pre-Hypertensive BP Reading Systolic Measurement: 139 Diastolic Measurement: 87 Screening for High Blood Pressure: < Pre-Hypertensive BP, F/U Documented > [ G8950] Pre-Hypertensive Follow-up Interventions: Referral to alternative/primary care provider.
[2018-04-24 23:10] LABS: BASO % 0.4 % (0-6); GRAN % 59.5 % (47-80); HEMATOCRIT 43.1 % (42.0-52.0); HEMOGLOBIN 14.7 gm/dl (14.0-18.0); LYMPH % 28.9 % (16-45); MEAN CELL VOLUME 90.7 fl (81-97); MEAN CORPUSCULAR HEMOGLOBIN 30.9 pg (27-33); MEAN CORPUSCULAR HGB CONC 34.1 g/dl (32-36); MEAN PLATELET VOLUME 9.9 fl (7.4-10.4); MONO % 8.2 % (0-9); PLATELET COUNT 296 K/uL (130-400); RED BLOOD COUNT 4.75 M/uL (4.40-5.70); RED CELL DISTRIBUTION WIDTH 14.3 % (11.5-14.5); WHITE BLOOD COUNT W/O DIFF 10.1 K/uL (4.2-12.2)
[2018-04-24 23:19] LABS: BLOOD UREA NITROGEN 14 mg/dL (6-20); CREATININE 1.1 mg/dL (0.7-1.2); EST GLOMERULAR FILTRATION RATE > 60 mL/min; TOTAL PROTEIN 6.7 g/dL (6.6-8.7)
[2018-04-24 23:21] LABS: GLUCOSE,RANDOM 95 mg/dL (74-109)
[2018-04-24 23:24] LABS: ALB/GLOB RATIO 1.8 (1.1-1.8); ALBUMIN 4.3 g/dL (4.0-5.0); ALKALINE PHOSPHATASE 70 U/L (40-129); ALT/SGPT 37 U/L (<41); AST/SGOT 21 U/L (10.0-50.0); LIPASE 41 U/L (13-60)
[2018-04-24] MEDS ORDERED: PHENAZOPYRIDINE HCL 95 MG TABLET PO ONE (23:59)
--- NOTE | 2018-04-26 07:48 | CT SCAN REPORT ---
EXAM: CT OF THE ABDOMEN AND PELVIS WITHOUT CONTRAST HISTORY: ABDOMINAL PAIN. TECHNIQUE: Sequential axial images were obtained from the diaphragms through the ischiorectal fossa without intravenous or oral contrast administration. FINDINGS: The visualized lung bases are normal. The heart and pericardium appear normal. The gallbladder is contracted. There are multiple stones present. The pancreas and spleen appear normal. The adrenal glands and kidneys appear normal. No CT findings suggestive of obstructive uropathy. The small and large bowel appears normal. The appendix is visualized and appears normal. The urinary bladder appears normal. The osseous structures are normal. IMPRESSION: 1. CONTRACTED GALLBLADDER WITH CHOLELITHIASIS. NO DUCTAL DILATATION. 2. MILD FATTY INFILTRATION OF THE LIVER. [facility]BER: [id number] [facility]
== END 2018-04-25 00:09 | disposition home or self-care (01) ==
LOC: ER 22:23
DX: R30.0 Dysuria (principal); N50.89 Other specified disorders of the male genital organs; R10.9 Unspecified abdominal pain; L03.032 Cellulitis of left toe; Z87.891 Personal history of nicotine dependence
CPT/HCPCS: 74176; 80053; 81003; 83690; 85025; 99283; 99284

== ENCOUNTER 2018-05-18 20:42 | Emergency (ER) | payer MEDICAID ==
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
[2018-05-18] MEDS: ONDANSETRON 4 MG ODT TABLET SL ONE (21:15)
[2018-05-18] MEDS: METHYLPREDNISOLONE PF 125MG/VIAL IM ONE (21:16)
[2018-05-18] MEDS: DIPHENHYDRAMINE HCL 50 MG/ML VIAL IM ONE (21:16)
== END 2018-05-18 22:24 | disposition home or self-care (01) ==
LOC: ER 20:42
DX: T63.443A Toxic effect of venom of bees, assault, initial encounter (principal); R11.0 Nausea; L29.9 Pruritus, unspecified; Z87.891 Personal history of nicotine dependence
CPT/HCPCS: 96372; 99283; J1200; J2930

== ENCOUNTER 2018-11-03 09:59 | Day surgery (SDC) | payer MEDICARE, MEDICAID ==
[2018-11-03] MEDS ORDERED: PROPOFOL 10 MG/ML VIAL IV ONE (10:00)
[2018-11-03] MEDS ORDERED: LIDOCAINE 2% MDV (20MG/ML) 20ML VIAL IV ONE (10:00)
--- NOTE | 2018-11-04 10:00 | Operative Note ---
DATE OF SURGERY: 11/03/2018 OPERATION: ESOPHAGOGASTRODUODENOSCOPY with biopsy. PREOPERATIVE DIAGNOSIS: Chronic reflux. POSTOPERATIVE DIAGNOSIS: Mild GE junction erythema. PROCEDURE: After informed consent was obtained from the patient, he was placed in the supine position in the endoscopy department. He was sedated by the department of anesthesia. A well-lubricated [id number] gastroscope was placed in the posterior oropharynx under direct visualization and passed to the proximal esophagus. The endoscope was advanced through the proximal, mid, and distal esophagus. The GE junction demonstrated some mild erythema but no ulcers, erosions, strictures, varices, or mass lesions were seen. No obvious Dash's was noted. The gastric body, antrum, pylorus, duodenal bulb, and sweep were unremarkable. The endoscope was then inverted in the gastric body. Proximal views of the fundus were unrevealing. The endoscope was then straightened and retracted from the patient with no new findings noted. RECOMMENDATIONS: I would recommend the patient continue his current medical program. However, I did instruct him to take his omeprazole prior to his evening meal rather than prior to bedtime given the need for meal-induced proton pump stimulation. As always, thank you for allowing me to participate in the healthcare of your patients. CC: ANJELICA Michele
== END 2018-11-03 11:35 | disposition home or self-care (01) ==
LOC: HOP 09:59
PROVIDERS: ATTEND Internal Medicine Gastroenterology
DX: K21.9 Gastro-esophageal reflux disease without esophagitis (principal); K31.9 Disease of stomach and duodenum, unspecified; I10 Essential (primary) hypertension; G62.9 Polyneuropathy, unspecified

== ENCOUNTER 2019-05-29 14:01 | Emergency (ER) | payer MEDICARE, MEDICAID ==
--- NOTE | 2019-05-29 14:34 | Emergency Department Record ---
History of Present Illness - General Stated Complaint: PAIN/NUMBNESS RT SIDE Time Seen by Provider: 05/29/19 14:07 Source: Patient, Family Mode of Arrival: Ambulatory Limitations: No limitations - History of Present Illness Initial Comments: 38 yo male presents with some worsening pain and weakness in his RUE. He reports he has had a neuropathy involving the RUE, RLE, and LLE for about 4 years. He does see a neurologist and a pain specialist. His pain specialist has had him on Trokendi (topiramate) for about 2 years. He ran out about 2 weeks ago. His symptoms worsened a few days after that. He states the Tokendi is the one thing that has helped over time. He has chronic weakness and pain. It is not unusual for him to drop objects or have pain with he raises his arm upward. His doctor has given him samples over the last two years but the pharmacy rep has not resupplied him. No other new or different symptoms. No speech changes. -: Days(s) Location: Other History of same: Yes Place: Home Severity: Moderate Quality: Burning, Constant, Tingling Improves With: Medication Worsens With: Other (Being off the medication) On Anticoagulants: No Context: Gradual onset Associated Symptoms: Denies other symptoms Treatments Prior to Arrival: None - Renuka Coma Scale Eye Response: (4) Open spontaneously Motor Response: (6) Obeys commands Verbal Response: (5) Oriented [place] Total: 15 - Related Data Home Medications: Previous Rx's Medication Instructions Recorded Topiramate 100Mg Tablet 100 mg PO BID #28 tablet 05/29/19 [Topiramate] Allergies/Adverse Reactions: Allergies Allergy/AdvReac Type Severity Reaction Status Date / Time gabapentin Allergy Intermediate RASH, Unverified 04/19/19 08:54 FACIAL NUMBNESS Review of Systems Constitutional: Denies: Chills, Fever, Malaise, Weakness Eyes: Denies: Eye discharge ENT: Denies: Congestion, Throat pain Respiratory: Denies: Cough Cardiovascular: Denies: Chest pain, Palpitations, Syncope Endocrine: Denies: Fatigue Gastrointestinal: Denies: Abdominal pain, Diarrhea, Nausea, Vomiting Genitourinary: Denies: Dysuria, Frequency, Hematuria Musculoskeletal: Denies: Arthralgia, Back pain, Joint swelling, Myalgia Skin: Denies: Bruising, Change in color, Rash Neurological: Reports: Numbness, Tingling, Weakness Psychiatric: Reports: Anxiety Hematological/Lymphatic: Denies: Easy bleeding, Easy bruising Past Medical History - SOCIAL HISTORY Smoking Status: Light tobacco smoker (<10/day) - RESPIRATORY Hx Respiratory Disorders: No - CARDIOVASCULAR Hx Cardio Disorders: Yes Hx Hypertension: Yes (on meds) - NEURO Hx Neuro Disorders: Yes Hx Neuropathy: Yes (feet, legs, right arm and hand) Comment:: unknown cause of neuropathy - GI Hx GI Disorders: Yes Hx Reflux: Yes - Hx Genitourinary Disorders: Yes Comment:: urgency, completness of urination - ENDOCRINE Hx Endocrine Disorders: Yes Hx Diabetes: No Hx Thyroid Disease: Yes (biopsy but okay so far, no meds) - MUSCULOSKELETAL Hx Musculoskeletal Disorders: Yes - PSYCH Hx Psych Problems: No Hx Anxiety: No Hx Depression: No - HEMATOLOGY/ONCOLOGY Hx Hematology/Oncology Disorders: No Family Medical History Family Hx Comment (NOT TO BE USED IN PLACE OF ITEMS BELOW): diabetics and htn runs in family but unsure of details. Physical Exam - General General Appearance: Alert, Oriented x3, Cooperative, No acute distress Limitations: No limitations - Head Head exam: Atraumatic, Normal inspection - Eye Eye exam: Normal appearance, PERRL. negative: Conjunctival injection, Scleral icterus - ENT ENT exam: Normal exam, Mucous membranes moist Ear exam: Normal external inspection Nasal Exam: Normal inspection Mouth exam: Normal external inspection - Neck Neck exam: Normal inspection - Respiratory Respiratory exam: Normal lung sounds bilaterally. negative: Rhonchi, Stridor, Wheezes - Cardiovascular Cardiovascular Exam: Regular rate, Normal rhythm, Normal heart sounds Peripheral Pulses: 2+: Radial (R), Radial (L) - GI/Abdominal GI/Abdominal exam: Soft. negative: Tenderness - Rectal Rectal exam: Deferred - exam: Deferred - Extremities Extremities exam: Normal inspection - Back Back exam: Denies: CVA tenderness (R), CVA tenderness (L) - Neurological Neurological exam: Abnormal gait, Alert, CN II-XII intact, Motor sensory deficit, Oriented X3, Reflexes normal, Other (the cork wirer on the right is diminshed compaired to the left with cork wirer 3-4/5, biceps 4/5, pain if lifted up to shoulder level, no swelling, sensaiton grossly intact. ). negative: Altered Course - Reevaluation(s) Reevaluation #1: 05/29/19 14:47 The patient' symptoms are an exacerbation of his chronic symptoms since stopping his Tokendi I do not find symptoms outside of where he noted his chronic symptoms The Tokendi ER is very expensive and not covered The patient is on topiramate ER 200mg once daily This was discussed with the pharmacist. He will be place on an equivalent dose of the immediate release formula He will be provided 100mg BID 05/29/19 14:49 Disposition Disposition: Discharge Clinical Impression: Neuropathy Disposition: Home, Self-Care Condition: (1) Good Instructions: Peripheral Neuropathy (ED) Additional Instructions: Call your doctor for the next available follow up appointment Return to the ER for a recheck if worse, any new concerns or questions Take the prescriptions provided as directed Prescriptions: Topiramate 100Mg Tablet [Topiramate] 100 mg PO BID #28 tablet Time of Disposition: 14:38 Quality - Quality Measures Quality Measures: N/A - Blood Pressure Screening Does Patient Have Any of the Following: No, Active Dx of HTN Blood Pressure Classification: Pre-Hypertensive BP Reading Systolic Measurement: 139 Diastolic Measurement: 80 Screening for High Blood Pressure: < Normal BP, F/U Not Required > [G8783]
== END 2019-05-29 14:58 | disposition home or self-care (01) ==
LOC: ER 14:01
DX: G62.9 Polyneuropathy, unspecified (principal); I10 Essential (primary) hypertension; F17.210 Nicotine dependence, cigarettes, uncomplicated
CPT/HCPCS: 99283